=== PATIENT | male | born 1965 | race Caucasian/White ===

== ENCOUNTER 2017-09-23 04:49 | Observation (INO) ==
[2017-09-23] MEDS ORDERED: Aspirin 81 MG TAB.CHEW PO ONE (05:10)
[2017-09-23 05:20] LABS: Basophils # 0.1 K/mcL (0.0-0.2); Basophils % 0.3 %; Eosinophils # 0.1 K/mcL (0.0-0.6); Eosinophils % 0.6 %; Hematocrit 44.8 % (37.5-50.1); Immature Granulocytes % 0.8 % (0-4); Lymphocytes # 3.1 K/mcL (0.6-4.6); Lymphocytes % 17.6 %; Mean Corpuscular HGB Conc 35.7 g/dL (31.6-35.5); Mean Corpuscular Hemoglobin 33.6 pg (28.0-33.3); Mean Corpuscular Volume 94.1 fL (83.0-100.0); Mean Platelet Volume 10.1 fL (9.4-12.4); Monocytes # 0.9 K/mcL (0.0-1.3); Neutrophils # 13.5 K/mcL (1.6-8.9); Platelet Count 290 K/mcL (140-400); Red Blood Count 4.76 M/mcL (4.19-5.50); Segmented Neutrophils % 75.7 %
[2017-09-23 05:54] LABS: BUN/Creatinine Ratio 23 (6-26); Blood Urea Nitrogen 21 mg/dL (6-20); Calcium 10.9 mg/dL (8.6-10.3); Carbon Dioxide 24 mEq/L (23-29); Chloride 105 mEq/L (98-107); Glucose 132 mg/dL (70-105); Osmolality,Calculated 293 (280-300); Potassium 3.9 mEq/L (3.5-5.1); Sodium 139 mEq/L (136-145); eGFR For African Americans > 60 (> 60); eGFR For Non-African Americans > 60 (> 60)
[2017-09-23 05:56] LABS: Troponin I < 0.03 ng/mL (< 0.04)
--- NOTE | 2017-09-23 05:59 | Emergency Department Note ---
Disposition Clinical Impression: Epigastric pain Nausea & vomiting Qualifiers: Vomiting type: unspecified Vomiting Intractability: unspecified Qualified Code( s): R11.2 - Nausea with vomiting, unspecified Disposition: Admitted As Inpatient Condition: Good Referrals: Harika Arana HEALTH CONSULTANT [Primary Care Provider] - Forms: ED Satisfaction Letter Time of Disposition: 06:19 Chest Pain HPI - General Chief Complaint: ED Chest Pain Stated Complaint: CP, Hypertension Time Seen by Provider: 09/23/17 05:09 Source: patient Limitations: no limitations Vital Signs Reviewed: Yes Nursing Notes Reviewed: Yes - History of Present Illness HPI Narrative: 52-year-old male smoker, with past medical history of AR presents with symptoms he mentions are consistent with his past heart attack. Patient mentions nausea , vomiting, jaw pain, and epigastric pain. He mentions he first became nauseous yesterday afternoon, while he was at [employer] Later in the evening he started to have episodes of vomiting, and mentions he has vomited 3 or 4 times since 6 PM. He had awoken during the night, with epigastric pain, that was accompanied with jaw pain and neck pain. The time he did mention he had measured his blood pressure and it was 173/113. He mentions that his initial AR he had similar episodes of epigastric pain. He did take one nitroglycerin prior to his arrival, and mentions that his symptoms are easing up. He is not sure if his symptoms worsen on exertion. He does mention recent chills, but denies any fever, diarrhea, headache, chest pain, shortness of breath. Severity scale (1-10): 3 - Related Data Home Medications Medication Instructions Recorded Confirmed Atorvastatin [Lipitor] 80 mg PO HS 01/06/15 07/18/16 CloNIDine HCl 0.1 mg PO AD 01/06/15 07/18/16 Colchicine [Colcrys] 0.6 mg PO DAILY PRN 01/06/15 07/18/16 Cyclobenzaprine [Flexeril] 10 mg PO BID PRN 01/06/15 07/18/16 HydrOXYzine Pamoate 25 mg PO HS 01/06/15 07/18/16 Isosorbide MONOnitrate [Isosorbide 30 mg PO DAILY 01/06/15 07/18/16 Mononitrate ER] Lisinopril [Zestril] 30 mg PO DAILY 01/06/15 07/18/16 Metoprolol Tartrate 50 mg PO BID 01/06/15 07/18/16 Ranolazine [Ranexa] 500 mg PO BID 01/06/15 07/18/16 Aspirin [Adult Low Dose Aspirin EC] 81 mg PO DAILY 05/27/15 07/18/16 Nitroglycerin [Nitrostat] 0.4 mg SL PRN PRN 05/27/15 07/18/16 Gabapentin [Neurontin] 300 mg PO TID 07/16/15 07/18/16 traMADol [Ultram] 50 mg PO QID PRN 07/16/15 07/18/16 Allopurinol [Zyloprim 300 MG] 300 mg PO DAILY 07/18/16 07/18/16 Ranitidine HCl [Zantac 75] 75 mg PO BID 07/18/16 07/18/16 Previous Rx's Medication Instructions Recorded Folic Acid 1 mg PO DAILY #90 tablet 06/21/16 Allergies Allergy/AdvReac Type Severity Reaction Status Date / Time No Known Allergies Allergy Verified 01/06/15 15:20 All systems ED: reviewed and negative except as stated. Review of Systems: As Per HPI Constitutional: Reports: as per HPI Eyes: Denies: vision change ENT ED: Denies: throat pain Cardiovascular: Reports: as per HPI. Denies: palpitations, orthopnea, edema Respiratory: Reports: as per HPI. Denies: cough Gastrointestinal: Reports: as per HPI. Denies: diarrhea, constipation Genitourinary: Denies: dysuria Musculoskeletal: Denies: back pain Integumentary: Denies: rash Neurological: Denies: headache, weakness Endocrine: Denies: fatigue Hematological/Lymphatic: Denies: easy bleeding Allergic/Immunologic: Denies: facial swelling Chest Pain PMH - Past Medical History Medical history: Reports: GERD, hypertension, myocardial infarction, other Surgical history: Reports: appendectomy, hip replacement, other Psychiatric history: Reports: no psych history - Social History Smoking Status: Current every day smoker Alcohol use: Reports: occasionally Drug use: Reports: none Physical Exam - General Limitations: no limitations General appearance: alert, in no apparent distress - Head Head exam: atraumatic, normocephalic - Eye Eye exam: Present: EOMI. Absent: conjunctival injection - ENT ENT exam: mucous membranes moist, normal external ear exam - Neck Neck exam: Present: normal inspection, full ROM. Absent: lymphadenopathy - Chest Chest inspection: Present: normal inspection, symmetric chest wall rise - Respiratory Respiratory exam: Present: normal lung sounds bilaterally (Lungs sounds are coarse). Absent: respiratory distress, wheezes, stridor - Cardiovascular Cardiovascular exam: Present: regular rate, normal rhythm - Abdominal Exam Abdominal exam: Present: soft, Non-Tender - Extremities Exam Extremities exam: Present: normal inspection, full ROM, normal capillary refill - Back Exam Back exam: Present: normal inspection, full ROM - Neurological Exam Neurological exam: Present: alert, oriented X3 - Psychiatric Psychiatric exam: Present: normal affect, normal mood - Skin Skin exam: Present: warm, dry, intact, normal color. Absent: rash, cyanosis, diaphoresis Course Course Narrative: Patient is a 52-year-old male smoker. He has past medical History of AR, hypertension, hyperlipidemia. He presents with epigastric, jaw pain, accompanied with nausea and vomiting, and elevated blood pressure. He compares these symptoms to his previous AR which was approximately 7 years ago. He mentions he has not had any recent cardiac workup. Blood pressure at home per patient was 173/113. Patient had taken one nitroglycerin at home. He is declined additional analgesics. Repeat blood pressure at this time was 150/97. Patient has received aspirin here in the department. Workup has been initiated. Initial EKG showed no acute signs of ischemia, and appears consistent with previous EKG from 3 years ago. On examination patient is alert and oriented 3. No acute distress. - Reevaluation(s) Reevaluation #1: Chest x-ray still pending. No Elevation of troponin. Vitals remain stable. Blood pressure 123/93. Whilte Blood cell count 17.8. Neutrophils 13.5. This x -ray still pending. At this time it is the end of my shift. Care of patient will be transferred to dayshift provider Reinier Piedra CNP. Pt discussed with Reinier. Please see his documentation for details. At this time, I feel patient will be admitted for further eval and possible ACS rule out. However please see Reinier's documentation for final evaluation and disposition. Time: 06:18 Vital Signs Temperature 97.4 F L 09/23/17 04:51 Pulse Rate 67 09/23/17 04:51 Respiratory Rate 18 09/23/17 04:51 Blood Pressure 178/116 09/23/17 04:51 O2 Sat by Pulse Oximetry 96 09/23/17 04:51 Temperature 97.4 F L 09/23/17 04:51 Pulse Rate 68 09/23/17 06:05 Respiratory Rate 18 09/23/17 06:05 Blood Pressure 123/93 09/23/17 06:05 O2 Sat by Pulse Oximetry 98 09/23/17 06:05 Oxygen Delivery Oxygen Delivery Room Air Chest Pain - Lab Data Result diagrams: 09/23/17 05:07 09/23/17 05:07 Lab Results 09/23/17 09/23/17 Range/Units 05:07 05:07 WBC 17.8 H (4.3-11.1) K/mcL RBC 4.76 (4.19-5.50) M/mcL Hgb 16.0 (12.9-16.9) g/dL Hct 44.8 (37.5-50.1) % MCV 94.1 (83.0-100.0) fL MCH 33.6 H (28.0-33.3) pg MCHC 35.7 H (31.6-35.5) g/dL RDW 13.0 (11.5-14.5) % Plt Count 290 (140-400) K/mcL MPV 10.1 (9.4-12.4) fL Immature Gran % 0.8 (0-4) % Seg Neutrophils % 75.7 % Lymphocytes % 17.6 % Monocytes % 5.0 % Eosinophils % 0.6 % Basophils % 0.3 % Neutrophils # 13.5 H (1.6-8.9) K/mcL Lymphocytes # 3.1 (0.6-4.6) K/mcL Monocytes # 0.9 (0.0-1.3) K/mcL Eosinophils # 0.1 (0.0-0.6) K/mcL Basophils # 0.1 (0.0-0.2) K/mcL Sodium 139 (136-145) mEq/L Potassium 3.9 (3.5-5.1) mEq/L Chloride 105 (98-107) mEq/L Carbon Dioxide 24 (23-29) mEq/L BUN 21 H (6-20) mg/dL Creatinine 0.92 (0.70-1.30) mg/dL Est GFR ( Amer) > 60 (> 60) Est GFR (Non-Af Amer) > 60 (> 60) BUN/Creatinine Ratio 23 (6-26) Glucose 132 H (70-105) mg/dL Calculated Osmolality 293 (280-300) Calcium 10.9 H (8.6-10.3) mg/dL Troponin I < 0.03 (< 0.04) ng/mL - EKG Data EKG attestation: Yes I reviewed and interpreted this EKG. EKG results narrative: Sinus rhythm with occasional PVCs, ventricular rate 76, GA interval 160, QRS duration 90, QT over QTC 363/393; minimal voltage criteria for LVH, inferior myocardial infarction of indeterminate age, with comparison of Previous EKG from September 2014, no significant changes. S.B.A.R. - S.B.A.[place]. Situation: Demographics, MOA Background: Presenting Complaint, Relevant PMH, Meds, & Allergies Assessment: Vital Signs, Course and respsone to treatment, Pertinant Lab Results Recommendation: Barrier(s) to disposition, Recommendation based on pending studies, treatments, or consults S.B.A.R. Report Given to: Reinier Piedra CNP S.B.A.RArvind Repor Time: 06:20
--- NOTE | 2017-09-23 06:26 | Emergency Department Note ---
Disposition Clinical Impression: Epigastric pain, Atypical chest pain Nausea & vomiting Qualifiers: Vomiting type: unspecified Vomiting Intractability: unspecified Qualified Code( s): R11.2 - Nausea with vomiting, unspecified Disposition: Admitted As Inpatient Condition: Fair Referrals: Harika Arana CNP [Primary Care Provider] - Forms: ED Satisfaction Letter Time of Disposition: 07:27 Chest Pain HPI - General Chief Complaint: ED Chest Pain Stated Complaint: CP, Hypertension Time Seen by Provider: 09/23/17 05:09 Source: patient Limitations: no limitations - History of Present Illness Severity scale (1-10): 3 - Related Data Home Medications Medication Instructions Recorded Confirmed Atorvastatin [Lipitor] 80 mg PO HS 01/06/15 07/18/16 CloNIDine HCl 0.1 mg PO AD 01/06/15 07/18/16 Colchicine [Colcrys] 0.6 mg PO DAILY PRN 01/06/15 07/18/16 Cyclobenzaprine [Flexeril] 10 mg PO BID PRN 01/06/15 07/18/16 HydrOXYzine Pamoate 25 mg PO HS 01/06/15 07/18/16 Isosorbide MONOnitrate [Isosorbide 30 mg PO DAILY 01/06/15 07/18/16 Mononitrate ER] Lisinopril [Zestril] 30 mg PO DAILY 01/06/15 07/18/16 Metoprolol Tartrate 50 mg PO BID 01/06/15 07/18/16 Ranolazine [Ranexa] 500 mg PO BID 01/06/15 07/18/16 Aspirin [Adult Low Dose Aspirin EC] 81 mg PO DAILY 05/27/15 07/18/16 Nitroglycerin [Nitrostat] 0.4 mg SL PRN PRN 05/27/15 07/18/16 Gabapentin [Neurontin] 300 mg PO TID 07/16/15 07/18/16 traMADol [Ultram] 50 mg PO QID PRN 07/16/15 07/18/16 Allopurinol [Zyloprim 300 MG] 300 mg PO DAILY 07/18/16 07/18/16 Ranitidine HCl [Zantac 75] 75 mg PO BID 07/18/16 07/18/16 Previous Rx's Medication Instructions Recorded Folic Acid 1 mg PO DAILY #90 tablet 06/21/16 Allergies Allergy/AdvReac Type Severity Reaction Status Date / Time No Known Allergies Allergy Verified 01/06/15 15:20 Constitutional: Reports: as per HPI Eyes: Denies: vision change ENT ED: Denies: throat pain Cardiovascular: Reports: as per HPI. Denies: palpitations, orthopnea, edema Respiratory: Reports: as per HPI. Denies: cough Gastrointestinal: Reports: as per HPI. Denies: diarrhea, constipation Genitourinary: Denies: dysuria Musculoskeletal: Denies: back pain Integumentary: Denies: rash Neurological: Denies: headache, weakness Endocrine: Denies: fatigue Hematological/Lymphatic: Denies: easy bleeding Allergic/Immunologic: Denies: facial swelling Chest Pain PMH - Past Medical History Medical history: Reports: GERD, hypertension, myocardial infarction, other Surgical history: Reports: appendectomy, hip replacement, other Psychiatric history: Reports: no psych history - Social History Smoking Status: Current every day smoker Alcohol use: Reports: occasionally Drug use: Reports: none Physical Exam - General Limitations: no limitations General appearance: alert, in no apparent distress Course Course Narrative: 0600: I have assumed care of this patient from SARAHI Nieves due to mid-level shift change. Please see Ezequiel's documentation for care performed prior to my arrival. Briefly, this is an alert and oriented nontoxic-appearing 52-year-old male that presented for complaint of nausea, vomiting, left sided jaw pain,. Symptoms began yesterday.. He stated that he had vomited 3-4 times since 6 PM yesterday evening. He also complains of elevated blood pressure readings at home of 173/113. He does have a history of TX, hyperlipidemia, hypertension, and gastroesophageal reflux disease. He states that symptoms were similar to his previous TX. He administered 1 sublingual nitroglycerin prior to his arrival here and stated that his symptoms were improving at the time of his arrival. He stated that he had not had any recent cardiac workup. Aside from mildly elevated white blood cell count at 17.8, the patient's laboratory workup has been unremarkable. Chest x-ray shows no signs of a focal infiltrate. I believe this patient's leukocytosis is likely de-margination from his episodes of vomiting. Nonetheless, given the patient's medical history and the fact that symptoms are similar to his previous TX, we will admit to the hospitalist service for acute coronary syndrome rule out. I discussed this plan with Dr. Mcclendon, ED attending. She has had a [id number] evaluation with the patient and agrees with this plan. 0650: We were alerted by an overhead page for a rhythm alert on this patient. Upon entering the room, the patient was found to be in apparent sinus bradycardia at a rate of 35 bpm. He denied any new or worsening chest pain or pressure. An EKG was obtained at that time however did not catch this episode of bradycardia as the patient's heart rate quickly normalized. EKG showed a sinus rhythm at a rate of 60 bpm. ID interval 156, QRS duration 88, QT/QTc interval 394/395. 0725: I spoke with Dr. Delaney of the hospitalist service who has accepted the patient for admission for further evaluation. Vital Signs Temperature 97.4 F L 09/23/17 04:51 Pulse Rate 67 09/23/17 04:51 Respiratory Rate 18 09/23/17 04:51 Blood Pressure 178/116 09/23/17 04:51 O2 Sat by Pulse Oximetry 96 09/23/17 04:51 Temperature 97.4 F L 09/23/17 04:51 Pulse Rate 57 09/23/17 07:18 Respiratory Rate 16 09/23/17 07:18 Blood Pressure 143/88 09/23/17 07:18 O2 Sat by Pulse Oximetry 95 09/23/17 07:18 Oxygen Delivery Oxygen Delivery Room Air Chest Pain - Medical Records Medical records reviewed: Yes I reviewed the patient's medical records. - Lab Data Lab results reviewed: Yes I reviewed the patient's lab results. Lab results narrative: Laboratory Results WBC 17.8 K/mcL (4.3-11.1) H 09/23/17 05:07 RBC 4.76 M/mcL (4.19-5.50) 09/23/17 05:07 Hgb 16.0 g/dL (12.9-16.9) 09/23/17 05:07 Hct 44.8 % (37.5-50.1) 09/23/17 05:07 MCV 94.1 fL (83.0-100.0) 09/23/17 05:07 MCH 33.6 pg (28.0-33.3) H 09/23/17 05:07 MCHC 35.7 g/dL (31.6-35.5) H 09/23/17 05:07 RDW 13.0 % (11.5-14.5) 09/23/17 05:07 Plt Count 290 K/mcL (140-400) 09/23/17 05:07 MPV 10.1 fL (9.4-12.4) 09/23/17 05:07 Immature Gran % 0.8 % (0-4) 09/23/17 05:07 Seg Neutrophils % 75.7 % 09/23/17 05:07 Lymphocytes % 17.6 % 09/23/17 05:07 Monocytes % 5.0 % 09/23/17 05:07 Eosinophils % 0.6 % 09/23/17 05:07 Basophils % 0.3 % 09/23/17 05:07 Neutrophils # 13.5 K/mcL (1.6-8.9) H 09/23/17 05:07 Lymphocytes # 3.1 K/mcL (0.6-4.6) 09/23/17 05:07 Monocytes # 0.9 K/mcL (0.0-1.3) 09/23/17 05:07 Eosinophils # 0.1 K/mcL (0.0-0.6) 09/23/17 05:07 Basophils # 0.1 K/mcL (0.0-0.2) 09/23/17 05:07 Sodium 139 mEq/L (136-145) 09/23/17 05:07 Potassium 3.9 mEq/L (3.5-5.1) 09/23/17 05:07 Chloride 105 mEq/L (98-107) 09/23/17 05:07 Carbon Dioxide 24 mEq/L (23-29) 09/23/17 05:07 BUN 21 mg/dL (6-20) H 09/23/17 05:07 Creatinine 0.92 mg/dL (0.70-1.30) 09/23/17 05:07 Est GFR ( Amer) > 60 (> 60) 09/23/17 05:07 Est GFR (Non-Af Amer) > 60 (> 60) 09/23/17 05:07 BUN/Creatinine Ratio 23 (6-26) 09/23/17 05:07 Glucose 132 mg/dL (70-105) H 09/23/17 05:07 Calculated Osmolality 293 (280-300) 09/23/17 05:07 Calcium 10.9 mg/dL (8.6-10.3) H 09/23/17 05:07 Troponin I < 0.03 ng/mL (< 0.04) 09/23/17 05:07 Result diagrams: 09/23/17 05:07 09/23/17 05:07 Lab Results 09/23/17 09/23/17 Range/Units 05:07 05:07 WBC 17.8 H (4.3-11.1) K/mcL RBC 4.76 (4.19-5.50) M/mcL Hgb 16.0 (12.9-16.9) g/dL Hct 44.8 (37.5-50.1) % MCV 94.1 (83.0-100.0) fL MCH 33.6 H (28.0-33.3) pg MCHC 35.7 H (31.6-35.5) g/dL RDW 13.0 (11.5-14.5) % Plt Count 290 (140-400) K/mcL MPV 10.1 (9.4-12.4) fL Immature Gran % 0.8 (0-4) % Seg Neutrophils % 75.7 % Lymphocytes % 17.6 % Monocytes % 5.0 % Eosinophils % 0.6 % Basophils % 0.3 % Neutrophils # 13.5 H (1.6-8.9) K/mcL Lymphocytes # 3.1 (0.6-4.6) K/mcL Monocytes # 0.9 (0.0-1.3) K/mcL Eosinophils # 0.1 (0.0-0.6) K/mcL Basophils # 0.1 (0.0-0.2) K/mcL Sodium 139 (136-145) mEq/L Potassium 3.9 (3.5-5.1) mEq/L Chloride 105 (98-107) mEq/L Carbon Dioxide 24 (23-29) mEq/L BUN 21 H (6-20) mg/dL Creatinine 0.92 (0.70-1.30) mg/dL Est GFR ( Amer) > 60 (> 60) Est GFR (Non-Af Amer) > 60 (> 60) BUN/Creatinine Ratio 23 (6-26) Glucose 132 H (70-105) mg/dL Calculated Osmolality 293 (280-300) Calcium 10.9 H (8.6-10.3) mg/dL Troponin I < 0.03 (< 0.04) ng/mL - Radiology Data Radiology results reviewed: Yes I reviewed the patient's radiology results. Chest X-Ray 09/23/17 05:10 IMPRESSION: Diffuse bronchial wall thickening suggests airway inflammation, such as that seen with asthma, bronchitis smoking. No consolidative pneumonia. D/ / Yannick Perez / Yannick Perez Interpreting Provider: Yannick Perez - EKG Data EKG attestation: Yes I reviewed and interpreted this EKG. EKG results narrative: EKG reviewed by Dr. Mcclendon as well. EKG shows a sinus rhythm with occasional ventricular premature complexes at a rate of 76 bpm. ID interval 160, QRS duration 90, QT/QTc interval 363/393. No significant changes when compared to an EKG dated from 09/29/14. Heart Score - Score History: Moderately Suspicious EKG: Normal Age: 45-65 Risk Factors: Equal/Greater than 3 risk factor or history of atherosclerotic disease Troponin: Less than normal limit HEART Score Total: 4
--- NOTE | 2017-09-23 06:41 | Emergency Department Note ---
Disposition Clinical Impression: Epigastric pain Nausea & vomiting Qualifiers: Vomiting type: unspecified Vomiting Intractability: unspecified Qualified Code( s): R11.2 - Nausea with vomiting, unspecified Disposition: Admitted As Inpatient Condition: Good Referrals: Harika Arana CNP [Primary Care Provider] - Forms: ED Satisfaction Letter General Adult HPI - General Chief complaint: ED Chest Pain Stated complaint: CP, Hypertension Time Seen by Provider: 09/23/17 05:09 Source: patient Limitations: no limitations - History of Present Illness Pain Scale: 3 - Related Data Home Medications Medication Instructions Recorded Confirmed Atorvastatin [Lipitor] 80 mg PO HS 01/06/15 07/18/16 CloNIDine HCl 0.1 mg PO AD 01/06/15 07/18/16 Colchicine [Colcrys] 0.6 mg PO DAILY PRN 01/06/15 07/18/16 Cyclobenzaprine [Flexeril] 10 mg PO BID PRN 01/06/15 07/18/16 HydrOXYzine Pamoate 25 mg PO HS 01/06/15 07/18/16 Isosorbide MONOnitrate [Isosorbide 30 mg PO DAILY 01/06/15 07/18/16 Mononitrate ER] Lisinopril [Zestril] 30 mg PO DAILY 01/06/15 07/18/16 Metoprolol Tartrate 50 mg PO BID 01/06/15 07/18/16 Ranolazine [Ranexa] 500 mg PO BID 01/06/15 07/18/16 Aspirin [Adult Low Dose Aspirin EC] 81 mg PO DAILY 05/27/15 07/18/16 Nitroglycerin [Nitrostat] 0.4 mg SL PRN PRN 05/27/15 07/18/16 Gabapentin [Neurontin] 300 mg PO TID 07/16/15 07/18/16 traMADol [Ultram] 50 mg PO QID PRN 07/16/15 07/18/16 Allopurinol [Zyloprim 300 MG] 300 mg PO DAILY 07/18/16 07/18/16 Ranitidine HCl [Zantac 75] 75 mg PO BID 07/18/16 07/18/16 Previous Rx's Medication Instructions Recorded Folic Acid 1 mg PO DAILY #90 tablet 06/21/16 Allergies Allergy/AdvReac Type Severity Reaction Status Date / Time No Known Allergies Allergy Verified 01/06/15 15:20 Constitutional: Reports: as per HPI Eyes: Denies: vision change ENT ED: Denies: throat pain Cardiovascular: Reports: as per HPI. Denies: palpitations, orthopnea, edema Respiratory: Reports: as per HPI. Denies: cough Gastrointestinal: Reports: as per HPI. Denies: diarrhea, constipation Genitourinary: Denies: dysuria Musculoskeletal: Denies: back pain Integumentary: Denies: rash Neurological: Denies: headache, weakness Endocrine: Denies: fatigue Hematological/Lymphatic: Denies: easy bleeding Allergic/Immunologic: Denies: facial swelling Past Medical History - Past Medical History Medical history: Reports: GERD, hypertension, myocardial infarction, other Surgical history: Reports: appendectomy, hip replacement, other Psychiatric history: Reports: no psych history - Social History Smoking Status: Current every day smoker Smokeless Tobacco Status: Yes Alcohol use: Reports: occasionally Drug use: Reports: none Physical Exam - General Limitations: no limitations General appearance: alert, in no apparent distress Course - Reevaluation(s) Reevaluation #1: For this encounter, I have reviewed the SUPER[employer]GER [employer]CH[employer]IC or PA documentation, treatment plan, and medical decision making; and I have had face to face time with this patient. Patient to ED with chest pain radiated into the jaw. Significant cardiac history. Exam nonfocal. Lungs clear. Plan. Troponin negative. Pain resolved a home after his nitroglycerin. Admitted for further workup. Time: 06:39 Vital Signs Temperature 97.4 F L 09/23/17 04:51 Pulse Rate 67 09/23/17 04:51 Respiratory Rate 18 09/23/17 04:51 Blood Pressure 178/116 09/23/17 04:51 O2 Sat by Pulse Oximetry 96 09/23/17 04:51 Temperature 97.4 F L 09/23/17 04:51 Pulse Rate 63 09/23/17 06:19 Respiratory Rate 16 09/23/17 06:19 Blood Pressure 133/85 09/23/17 06:19 O2 Sat by Pulse Oximetry 97 09/23/17 06:19 Oxygen Delivery Oxygen Delivery Room Air Medical Decision Making - Lab Data Result diagrams: 09/23/17 05:07 09/23/17 05:07 Lab Results 09/23/17 09/23/17 Range/Units 05:07 05:07 WBC 17.8 H (4.3-11.1) K/mcL RBC 4.76 (4.19-5.50) M/mcL Hgb 16.0 (12.9-16.9) g/dL Hct 44.8 (37.5-50.1) % MCV 94.1 (83.0-100.0) fL MCH 33.6 H (28.0-33.3) pg MCHC 35.7 H (31.6-35.5) g/dL RDW 13.0 (11.5-14.5) % Plt Count 290 (140-400) K/mcL MPV 10.1 (9.4-12.4) fL Immature Gran % 0.8 (0-4) % Seg Neutrophils % 75.7 % Lymphocytes % 17.6 % Monocytes % 5.0 % Eosinophils % 0.6 % Basophils % 0.3 % Neutrophils # 13.5 H (1.6-8.9) K/mcL Lymphocytes # 3.1 (0.6-4.6) K/mcL Monocytes # 0.9 (0.0-1.3) K/mcL Eosinophils # 0.1 (0.0-0.6) K/mcL Basophils # 0.1 (0.0-0.2) K/mcL Sodium 139 (136-145) mEq/L Potassium 3.9 (3.5-5.1) mEq/L Chloride 105 (98-107) mEq/L Carbon Dioxide 24 (23-29) mEq/L BUN 21 H (6-20) mg/dL Creatinine 0.92 (0.70-1.30) mg/dL Est GFR ( Amer) > 60 (> 60) Est GFR (Non-Af Amer) > 60 (> 60) BUN/Creatinine Ratio 23 (6-26) Glucose 132 H (70-105) mg/dL Calculated Osmolality 293 (280-300) Calcium 10.9 H (8.6-10.3) mg/dL Troponin I < 0.03 (< 0.04) ng/mL
[2017-09-23] MEDS ORDERED: Nitroglycerin 0.4 MG TAB.SUBL SL PRN (07:17)
[2017-09-23 07:59] LABS: Bilirubin,Urine Negative (Negative); Blood,Urine Negative (Negative); Clarity,Urine Clear (Clear); Color,Urine Yellow (Yellow); Glucose,Urine (UA) Normal (Normal); Ketones,Urine Negative (Negative); Leukocyte Esterase,Urine Negative (Negative); Nitrite,Urine Negative (Negative); Protein,Urine 30 mg/dL (Neg-Trace); Urobilinogen,Urine Normal (Normal)
[2017-09-23 08:02] LABS: Bacteria,Urine None Seen per hpf (None-Few); Hyaline Casts,Urine None Seen per lpf (None-Few); Squamous Epithelial Cell,Urine None Seen per lpf (None-Few); WBC,Urine 0-3 per hpf (0-3)
[2017-09-23] MEDS ORDERED: Naloxone 0.4 MG/ML INJ IVP PRN (11:12)
[2017-09-23] MEDS ORDERED: Acetaminophen 325 MG TABLET PO PRN (11:12)
[2017-09-23] MEDS ORDERED: cloNIDine HCl 0.1 MG TABLET PO PRN (11:15)
[2017-09-23] MEDS ORDERED: Pantoprazole 40 MG VIAL IVP STA (11:22)
[2017-09-23] MEDS ORDERED: Ondansetron 4 MG/2 ML VIAL IVP PRN (11:27)
[2017-09-23] MEDS: *HR* HYDROcodone/Acet 5/325 mg TABLET PO PRN ×2 (11:56→20:47)
[2017-09-23] MEDS: Nicotine 14 MG PATCH.TD24 TD SCH (11:56)
[2017-09-23] MEDS ORDERED: GI Cocktail 40 ML EACH PO ONE (16:08)
[2017-09-23] MEDS ORDERED: tiZANidine 4 MG TABLET PO PRN (20:31)
[2017-09-23] MEDS ORDERED: traMADol 50 MG TABLET PO PRN (20:31)
--- NOTE | 2017-09-23 20:47 | Internal Med History&Physical ---
Date of Encounter: 09/23/17 Time of Encounter: 09:07 Internal Medicine - H&P: HPI Chief complaint: Chest Pain, Epigastric Pain Admitted From: Emergency Dept Plans for Post Hospital Care: Home History of present illness: Mr. Retana is a 52 year old white male with PMH of CAD who presented to ED with 2-day history of chest pain and epigastric pain. He states that symptoms are similar to his previous [place]. He states that while shopping at [employer] yesterday, he developed nausea and vomiting. That night, he was awoken by chest pain and epigastric pain that radiated to jaw and left neck. He checked his BP at home and it was elevated to systolic 170s. He took one nitroglycerin prior to arrival, which helped with the pain somewhat. He denies fever, chills, SOB, changes in bladder, or changes in bowels. In the ED, EKG was NSR with occasional PVCs. He experienced few brief episodes of bradycardia to 40s when sleeping. Initial troponin was WNL. I was asked to admit patient for ACS ruleout. During my interview, patient states that pain is better, but still present in chest and abdomen. He denies nauesa or vomiting. He took his ranitidine before arrival to the ED. He still feels some heartburn. He has no other complaints. Past Med Surg Social Fam HX - Past Medical History Attestation: Yes The following information was validated with the patient. Source: patient Medical history: arthritis, GERD, hyperlipidemia, hypertension, myocardial infarction, other Psychiatric history: no psych history - Past Surgical History Surgical History: appendectomy, hip replacement, other - Social History Smoking Status: Current every day smoker Packs per day: 1/2-1 pack Smokeless Tobacco Status: No Alcohol use: occasionally Drug use: none - Family History Father Living Status: Age at : 49 Cause of : [place] Hx Family Cardiac Disorders: Yes Sister Living Status: Age at : 58 Cause of : [place] Hx Family Cardiac Disorders: Yes Mother Living Status: Age at : 80 Cause of : Cancer Hx Family Cancer: Yes (Lung, ovarian) Brother Living Status: Hx Family Cancer: Yes (Bowel) Internal Medicine - H&P: Meds Atorvastatin [Lipitor] 80 mg PO HS 01/06/15 [History] CloNIDine HCl 0.1 mg PO DAILY PRN 01/06/15 [History] Colchicine [Colcrys] 0.6 mg PO DAILY PRN 01/06/15 [History] Cyclobenzaprine [Flexeril] 10 mg PO BID PRN 01/06/15 [History] HydrOXYzine Pamoate 25 mg PO HS 01/06/15 [History] Isosorbide MONOnitrate [Isosorbide Mononitrate ER] 30 mg PO DAILY 01/06/15 [ History] Lisinopril [Zestril] 30 mg PO DAILY 01/06/15 [History] Metoprolol Tartrate 50 mg PO BID 01/06/15 [History] Ranolazine [Ranexa] 500 mg PO BID 01/06/15 [History] Aspirin [Adult Low Dose Aspirin EC] 81 mg PO DAILY 05/27/15 [History] Nitroglycerin [Nitrostat] 0.4 mg SL Q5M PRN 05/27/15 [History] Gabapentin [Neurontin] 300 mg PO TID 07/16/15 [History] traMADol [Ultram] 50 - 100 mg PO QID PRN 07/16/15 [History] Folic Acid 1 mg PO DAILY #90 tablet 06/21/16 [Rx] Allopurinol [Zyloprim 300 MG] 300 mg PO DAILY 07/18/16 [History] Ranitidine HCl [Zantac 75] 150 mg PO BID 07/18/16 [History] Tizanidine HCl [Zanaflex] 4 mg PO Q8H PRN 09/23/17 [History] valACYclovir [Valtrex] 500 mg PO DAILY 09/23/17 [History] 3 Allergy/AdvReac Type Severity Reaction Status Date / Time No Known Allergies Allergy Verified 01/06/15 15:20 - Constitutional Constitutional: no anorexia, no chills, no fatigue, no fever(s), no lethargy, no malaise, no weakness, no weight gain, no weight loss - EENT Eyes: no blurry vision, no diplopia, no discharge, no pain, no other visual disturbances Ears: no decreased hearing, no ear pain Nose, mouth and throat: no dry mouth, no dysphagia, no facial pain, no mouth lesions, no mouth pain, no nasal congestion, no nasal discharge, no sinus pain, no sore throat - Cardiovascular Cardiovascular ROS IM: chest pain, no diaphoresis, no dyspnea, no dyspnea on exertion, no edema, no lightheadedness, no palpitations, no syncope - Respiratory Respiratory: no cough, no dyspnea, no hemoptysis, no dyspnea on exertion, no wheezing, no chest congestion - Gastrointestinal Gastrointestinal: abdominal pain, heartburn, nausea, vomiting, no change in bowel habits, no constipation, no diarrhea, no dysphagia, no hematemesis, no hematochezia, no melena - Genitourinary Genitourinary ROS male: no difficulty urinating, no dysuria, no hematuria, no urinary frequency - Musculoskeletal Musculoskeletal ROS IM: no arthralgias, no joint swelling, no muscle weakness, no myalgias - Integumentary Integumentary IM: no erythema, no rash, no skin ulcer, no jaundice - Neurological Neurological ROS: no abnormal gait, no abnormal speech, no behavioral changes, no dizziness, no focal weakness, no headache(s), no vertigo, no weakness - Psychiatric Psychiatric: no anxiety, no behavioral changes, no confusion, no depression - Endocrine Endocrine IM: no cold intolerance, no fatigue, no heat intolerance, no polydipsia, no polyphagia, no polyuria - Constitutional Vitals: Temp Pulse Resp BP Pulse Ox 98.4 F 72 16 156/92 95 09/23/17 18:43 09/23/17 18:43 09/23/17 18:43 09/23/17 18:43 09/23/17 18:43 General appearance: Present: cooperative, A&O X 3, pleasant, no acute distress, obese, answers questions appropriately - Head Head exam: Present: atraumatic, normocephalic - Eye Eye exam: Present: EOMI, PERRL. Absent: conjunctival injection, nystagmus, scleral icterus - ENT ENT exam: Present: mucous membranes moist, normal external ear exam, normal oropharynx - Neck Neck exam general surgery: Present: supple, trachea midline. Absent: lymphadenopathy, tenderness, thyromegaly - Respiratory Respiratory exam: Present: CTAB. Absent: accessory muscle use, rales, rhonchi, wheezes Additional comments: Normal WOB - Cardiovascular Cardiovascular exam: Present: RRR, +S1, +S2. Absent: diastolic murmur, gallop, rubs, systolic murmur Additional comments: No BLE edema - GI/Abdominal GI/Abdominal exam: Present: normal bowel sounds, soft. Absent: distended, hepatomegaly, mass, splenomegaly, tenderness - Neurological Exam Neurological exam: Present: alert, CN II-XII intact, oriented X3, no focal deficits, strengths equal and symetr throughout. Absent: facial droop, speech deficit - Psychiatric Psychiatric exam: Present: normal affect, normal mood. Absent: anxious, depressed - Skin Skin exam: Present: dry, intact, warm. Absent: cyanosis, rash Internal Med - H&P Results - Labs CBC & Chem 7: 09/24/17 05:19 09/24/17 05:19 Labs: Cardiac Enzymes 09/23/17 09/23/17 Range/Units 11:29 17:11 Troponin I < 0.03 < 0.03 (< 0.04) ng/mL Urine 09/23/17 Range/Units 07:50 Urine Color Yellow (Yellow) Urine Clarity Clear (Clear) Urine pH 7.0 (5.0-8.0) pH Units Ur Specific [place] 1.030 H (1.010-1.025) Urine Protein 30 H (Neg-Trace) mg/dL Urine Glucose (UA) Normal (Normal) mg/dL - VTE Reasons for not Prescribing Prophylaxis: Treatment not Indicated - Low risk for VTE Documentation of Mechanical Device: Intermittent pneumatic compression device - Assessment and plan (1) Atypical chest pain Current Visit: Yes Status: Acute Assessment and plan: Admit for observation for ACS ruleout. Start telemetry. Trend troponin x 3. Obtain ECHO. Repeat EKG in AM. Continue supplemental O2 PRN. Continue tylenol and norco PRN pain. Continue aspirin. Continue nitroglycerin PRN for pain. Treat HTN, HLD, and CAD with home medications as per below. Treat chronic GERD and acute epigastric pain as per below. Repeat labwork in AM. (2) Epigastric pain Current Visit: Yes Status: Acute Assessment and plan: Treat GERD as per below. Start GI cocktail PRN epigastric pain. (3) GERD (gastroesophageal reflux disease) Current Visit: Yes Status: Acute Assessment and plan: Continue home H2 rabia. Start PPI acutely. Qualifiers: Esophagitis presence: without esophagitis Qualified Code(s): K21.9 - Gastro -esophageal reflux disease without esophagitis (4) Nicotine dependence Current Visit: Yes Status: Acute Assessment and plan: Counselled on smoking cessation. Start nicotine transdermal 14 mg QD. Qualifiers: Nicotine product type: cigarettes Substance use status: in withdrawal Qualified Code(s): F17.213 - Nicotine dependence, cigarettes, with withdrawal (5) Nausea & vomiting Current Visit: Yes Status: Acute Assessment and plan: Start zofran 4 mg IV Q6H PRN nausea/vomiting. Qualifiers: Vomiting type: unspecified Vomiting Intractability: unspecified Qualified Code(s): R11.2 - Nausea with vomiting, unspecified (6) HTN (hypertension) Current Visit: Yes Status: Acute Assessment and plan: Continue home medications. Qualifiers: Hypertension type: essential hypertension Qualified Code(s): I10 - Essential (primary) hypertension (7) HLD (hyperlipidemia) Current Visit: Yes Status: Acute Assessment and plan: Continue home medications. Qualifiers: Hyperlipidemia type: mixed hyperlipidemia Qualified Code(s): E78.2 - Mixed hyperlipidemia (8) DVT prophylaxis Current Visit: Yes Status: Acute Assessment and plan: Low risk and ambulatory. Start SCDs. - Time Spent With Patient Total time spent is greater than 50% in coordination of care (as documented) at patient's floor/unit and/or counseling patient: 25 - 35 minutes
[2017-09-23] MEDS: Ranolazine 500 MG TAB.ER.12H PO SCH (21:34)
[2017-09-23] MEDS: hydrOXYzine pamoate 25 MG CAPSULE PO SCH (21:34)
[2017-09-23] MEDS: Gabapentin 300 MG CAPSULE PO SCH (21:35)
[2017-09-24 05:39] LABS: Basophils # 0.1 K/mcL (0.0-0.2); Basophils % 0.4 %; Eosinophils # 0.2 K/mcL (0.0-0.6); Eosinophils % 1.9 %; Hematocrit 44.3 % (37.5-50.1); Hemoglobin 15.6 g/dL (12.9-16.9); Immature Granulocytes % 0.4 % (0-4); Lymphocytes # 3.7 K/mcL (0.6-4.6); Lymphocytes % 31.3 %; Mean Corpuscular HGB Conc 35.2 g/dL (31.6-35.5); Mean Corpuscular Hemoglobin 33.6 pg (28.0-33.3); Mean Corpuscular Volume 95.5 fL (83.0-100.0); Monocytes # 1.1 K/mcL (0.0-1.3); Monocytes % 9.1 %; Neutrophils # 6.7 K/mcL (1.6-8.9); Platelet Count 258 K/mcL (140-400); Red Blood Count 4.64 M/mcL (4.19-5.50); Red Cell Distribution Width 13.2 % (11.5-14.5); Segmented Neutrophils % 56.9 %
[2017-09-24 05:56] LABS: BUN/Creatinine Ratio 18 (6-26); Blood Urea Nitrogen 17 mg/dL (6-20); Calcium 9.5 mg/dL (8.6-10.3); Carbon Dioxide 26 mEq/L (23-29); Chloride 104 mEq/L (98-107); Chol/HDL Ratio 3.8 (0-4.9); Cholesterol 148 mg/dL (< 200); Glucose 128 mg/dL (70-105); HDL Cholesterol 39 mg/dL (40-59); LDL Cholesterol,Calculated 75 mg/dL (0-99); Osmolality,Calculated 289 (280-300); Potassium 3.5 mEq/L (3.5-5.1); Sodium 138 mEq/L (136-145); Triglycerides 171 mg/dL (< 150); eGFR For African Americans > 60 (> 60); eGFR For Non-African Americans > 60 (> 60)
[2017-09-24] MEDS: *HR* HYDROcodone/Acet 5/325 mg TABLET PO PRN ×3 (06:18→21:46)
[2017-09-24] MEDS: Gabapentin 300 MG CAPSULE PO SCH ×3 (08:47→21:46)
[2017-09-24] MEDS: valACYclovir 500 MG TABLET PO SCH (08:47)
[2017-09-24] MEDS: Nicotine 14 MG PATCH.TD24 TD SCH (08:47)
[2017-09-24] MEDS: Isosorbide MONOnitrate (24 HR) 30 MG TAB.ER.24H PO SCH (08:47)
[2017-09-24] MEDS: Folic Acid 1 MG TABLET PO SCH (08:48)
[2017-09-24] MEDS: Lisinopril 20 MG TABLET PO SCH (08:48)
[2017-09-24] MEDS: Aspirin Enteric Coated 81 MG Tablet PO SCH (08:48)
[2017-09-24] MEDS: Ranolazine 500 MG TAB.ER.12H PO SCH ×2 (08:48→21:46)
[2017-09-24] MEDS: Famotidine 20 MG TABLET PO SCH ×2 (08:48→16:03)
--- NOTE | 2017-09-24 11:01 | Internal Med Progress Note ---
Date of Encounter: 09/24/17 Time of Encounter: 10:59 - Assessment and plan (1) Nausea & vomiting Current Visit: Yes Status: Resolved Assessment and plan: resolved. Qualifiers: Vomiting type: unspecified Vomiting Intractability: unspecified Qualified Code(s): R11.2 - Nausea with vomiting, unspecified (2) Epigastric pain Current Visit: Yes Status: Acute Assessment and plan: Patient has history of severe reflux and actually affects his voice in the morning upon arising. Discussed with the patient regarding possible EGD with gastroenterology either as an inpatient or outpatient per their recommendations. I spoke with Dr. Chatman and he can plan the EGD for after his stress test tomorrow if the stress is negative. He will be nothing by mouth after midnight Continue Pepcid. (3) Atypical chest pain Current Visit: Yes Status: Acute Assessment and plan: Admit for observation for ACS ruleout. Continue telemetry. Troponins negative 3 Echocardiogram pending Repeat EKG reviewed Patient currently on room air with no shortness of breath Continue Tylenol and Bendena when necessary for pain Continue aspirin Nitroglycerin when necessary for pain but has not been required Treat hypertension, hyperlipidemia and CAD with home medications Treat chronic GERD and acute epigastric discomfort (4) GERD (gastroesophageal reflux disease) Current Visit: Yes Status: Acute Assessment and plan: Continue home H2 rabia. Plan for EGD Qualifiers: Esophagitis presence: without esophagitis Qualified Code(s): K21.9 - Gastro -esophageal reflux disease without esophagitis (5) Nicotine dependence Current Visit: Yes Status: Acute Assessment and plan: Counselled on smoking cessation. Continue nicotine transdermal 14 mg QD. Qualifiers: Nicotine product type: cigarettes Substance use status: in withdrawal Qualified Code(s): F17.213 - Nicotine dependence, cigarettes, with withdrawal (6) DVT prophylaxis Current Visit: Yes Status: Acute Assessment and plan: Low risk, ambulatory. Start SCDs. (7) HTN (hypertension) Current Visit: Yes Status: Acute Assessment and plan: Continue home medications Vital signs stable. Qualifiers: Hypertension type: essential hypertension Qualified Code(s): I10 - Essential (primary) hypertension (8) HLD (hyperlipidemia) Current Visit: Yes Status: Acute Assessment and plan: Continue home medications. Lipid panel reviewed with triglycerides 171, cholesterol 148, LDL 75, HDL cholesterol 39 Qualifiers: Hyperlipidemia type: mixed hyperlipidemia Qualified Code(s): E78.2 - Mixed hyperlipidemia - Time Spent With Patient Total time spent is greater than 50% in coordination of care (as documented) at patient's floor/unit and/or counseling patient: - Subjective Interval history: Patient is chest pain-free. He has a lot of issues with reflux at night and hoarse voice in the morning upon awakening. He is a smoker and utilizing a NicoDerm patch. He denies fever or chills shortness of breath or sweats. Discussed talking with gastroenterology service about possible EGD for evaluation of his severe reflux and he is in agreement. - Constitutional Vitals: Temp Pulse Resp BP Pulse Ox 97.9 F 60 18 124/76 94 09/24/17 07:09 09/24/17 07:09 09/24/17 07:09 09/24/17 07:09 09/24/17 07:09 General appearance: Present: cooperative, A&O X 3, pleasant, answers questions appropriately - Head Head exam: Present: atraumatic, normocephalic - Eye Eye exam: Present: PERRL, conjuntiva pink, sclera anicteric Pupils: Present: PERRL - Neck Neck exam general surgery: Present: supple, trachea midline. Absent: lymphadenopathy - Respiratory Respiratory exam: Absent: accessory muscle use, rales, rhonchi, wheezes Additional comments: slight coarse breath sounds - Cardiovascular Cardiovascular exam: Present: RRR, +S1, +S2. Absent: diastolic murmur, gallop, rubs, systolic murmur - GI/Abdominal GI/Abdominal exam: Present: normal bowel sounds, soft, no peritoneal signs. Absent: distended, tenderness - Extremities Exam Extremities exam: Present: warm, radial pulses palpable and symmetrical. Absent : calf tenderness, cyanotic, pedal edema - Neurological Exam Neurological exam: Present: alert, CN II-XII intact, oriented X3, no focal deficits. Absent: pronater drift, facial droop, speech deficit - Skin Skin exam: Present: dry, intact, normal color, warm Internal Medicine: Result - Labs CBC & Chem 7: 09/24/17 05:19 09/24/17 05:19 Labs: Short CBC 09/24/17 Range/Units 05:19 WBC 11.8 H (4.3-11.1) K/mcL Hgb 15.6 (12.9-16.9) g/dL Hct 44.3 (37.5-50.1) % Plt Count 258 (140-400) K/mcL Neutrophils # 6.7 (1.6-8.9) K/mcL BMP 09/24/17 05:19 Sodium 138 Potassium 3.5 Chloride 104 Carbon Dioxide 26 BUN 17 Creatinine 0.96 Glucose 128 H Calcium 9.5 Cardiac Enzymes 09/23/17 09/23/17 Range/Units 11:29 17:11 Troponin I < 0.03 < 0.03 (< 0.04) ng/mL - VTE Reasons for not Prescribing Prophylaxis: Treatment not Indicated - Low risk for VTE Documentation of Mechanical Device: Intermittent pneumatic compression device Consult Discharge Plan - Plan Referrals: Harika Arana, [employer] [Primary Care Provider] -
[2017-09-24] MEDS: hydrOXYzine pamoate 25 MG CAPSULE PO SCH (21:45)
[2017-09-25 05:15] LABS: Hematocrit 44.6 % (37.5-50.1); Hemoglobin 15.4 g/dL (12.9-16.9); Mean Corpuscular HGB Conc 34.5 g/dL (31.6-35.5); Mean Corpuscular Hemoglobin 33.6 pg (28.0-33.3); Mean Corpuscular Volume 97.2 fL (83.0-100.0); Mean Platelet Volume 10.4 fL (9.4-12.4); Platelet Count 249 K/mcL (140-400); Red Blood Count 4.59 M/mcL (4.19-5.50); Red Cell Distribution Width 13.2 % (11.5-14.5)
[2017-09-25 05:35] LABS: BUN/Creatinine Ratio 21 (6-26); Blood Urea Nitrogen 19 mg/dL (6-20); Calcium 9.1 mg/dL (8.6-10.3); Carbon Dioxide 25 mEq/L (23-29); Chloride 107 mEq/L (98-107); Glucose 92 mg/dL (70-105); Osmolality,Calculated 292 (280-300); Potassium 3.7 mEq/L (3.5-5.1); Sodium 140 mEq/L (136-145); eGFR For African Americans > 60 (> 60); eGFR For Non-African Americans > 60 (> 60)
[2017-09-25] MEDS ORDERED: Regadenoson 0.4 MG/5 ML SYRINGE IVP ONE (05:35)
[2017-09-25] MEDS: *HR* HYDROcodone/Acet 5/325 mg TABLET PO PRN (06:24)
[2017-09-25] MEDS: Folic Acid 1 MG TABLET PO SCH (09:29)
[2017-09-25] MEDS: valACYclovir 500 MG TABLET PO SCH (09:29)
[2017-09-25] MEDS: Lisinopril 20 MG TABLET PO SCH (09:29)
[2017-09-25] MEDS: Isosorbide MONOnitrate (24 HR) 30 MG TAB.ER.24H PO SCH (09:29)
[2017-09-25] MEDS: Ranolazine 500 MG TAB.ER.12H PO SCH (09:29)
[2017-09-25] MEDS: Famotidine 20 MG TABLET PO SCH (09:29)
[2017-09-25] MEDS: Nicotine 14 MG PATCH.TD24 TD SCH (09:30)
[2017-09-25] MEDS: Aspirin Enteric Coated 81 MG Tablet PO SCH (09:30)
[2017-09-25] MEDS: Gabapentin 300 MG CAPSULE PO SCH (09:30)
[2017-09-25] MEDS ORDERED: Lidocaine -MPF 2% 2 ML VIAL ONE (11:43)
[2017-09-25] MEDS ORDERED: *HR* Propofol 200 MG/20 ML VIAL IVP ONE (11:44)
--- NOTE | 2017-09-25 12:22 | Anesthesia Evaluation PreOp ---
Date of Encounter: 09/25/17 Time of Encounter: 12:19 - Past History Planned Operation: EGD Cardiac History: [place] (2010), HTN, Hyperlipidemia, Cardiac Stent (stent x 2 in 2010) Pulmonary History: Smoker (30 years) [employer] History: Denies Any Significant HX Other Medical History: Denies Any Significant HX, GERD Anesthesia History: No Prior Anesthetic Complications, Past Anesthesia Alcohol Use: occasionally Drug use: none Medications and Allergies Atorvastatin [Lipitor] 80 mg PO HS 01/06/15 [History] CloNIDine HCl 0.1 mg PO DAILY PRN 01/06/15 [History] Colchicine [Colcrys] 0.6 mg PO DAILY PRN 01/06/15 [History] Cyclobenzaprine [Flexeril] 10 mg PO BID PRN 01/06/15 [History] HydrOXYzine Pamoate 25 mg PO HS 01/06/15 [History] Isosorbide MONOnitrate [Isosorbide Mononitrate ER] 30 mg PO DAILY 01/06/15 [ History] Lisinopril [Zestril] 30 mg PO DAILY 01/06/15 [History] Metoprolol Tartrate 50 mg PO BID 01/06/15 [History] Ranolazine [Ranexa] 500 mg PO BID 01/06/15 [History] Aspirin [Adult Low Dose Aspirin EC] 81 mg PO DAILY 05/27/15 [History] Nitroglycerin [Nitrostat] 0.4 mg SL Q5M PRN 05/27/15 [History] Gabapentin [Neurontin] 300 mg PO TID 07/16/15 [History] traMADol [Ultram] 50 - 100 mg PO QID PRN 07/16/15 [History] Folic Acid 1 mg PO DAILY #90 tablet 06/21/16 [Rx] Allopurinol [Zyloprim 300 MG] 300 mg PO DAILY 07/18/16 [History] Ranitidine HCl [Zantac 75] 150 mg PO BID 07/18/16 [History] Tizanidine HCl [Zanaflex] 4 mg PO Q8H PRN 09/23/17 [History] valACYclovir [Valtrex] 500 mg PO DAILY 09/23/17 [History] 3 Allergy/AdvReac Type Severity Reaction Status Date / Time No Known Allergies Allergy Verified 01/06/15 15:20 - Meds/Allergy Pre-op Review Medications Reviewed: Yes Allergies Reviewed: Yes Beta Blockers on Current Med List: Yes If Beta Blockers taken, Date/Time (Last Dose taken): 09/25/2017 Anesthesia Results - Labs 09/25/17 04:00 09/25/17 04:00 - Imaging EKG: report reviewed (09/24/2017 SR with occasional ventricular premature complexes, inferior infarct) Additional studies: 09/25/2017 Stress Impression: Perfusion imaging was negative for ischemia. Fixed inferior wall defect - cannot exclude prior infarct. Low level exercise/ pharmacologic stress ECG is negative for ischemia at level of heart rate achieved. Occasional PVCs noted during stress. Gated EF = 61%. 09/24/2017 Limited Echo Impressions: LVEF 60%. Normal LV chamber size, wall thickness and function. Anesthesia Exam Vital Signs/O2 Sat, Most Current Temp Pulse Resp BP Pulse Ox 97.7 F 56 16 138/73 96 09/25/17 11:13 09/25/17 11:13 09/25/17 11:13 09/25/17 11:13 09/25/17 11:13 Height: 5'11''/1.8 m Weight: 267 lbs/121.2 kg NPO (# of Hours): 8 Pain Scale: 0 Pain Scale Used: Numeric (1 - 10) - HEENT Pupil (Motor): EOMI Mallampati: III Teeth: Normal (multiple chipped teeth) Oral Opening: Greater than 3 - [employer] LOC: Oriented [employer] Motor: Normal RUE, Normal LUE, Normal RLE, Normal LLE, Normal Face [employer] Sensory: Normal: RUE, LUE, RLE, LLE, Face - Cardiac Rhythm: Regular Murmur: None - Pulmonary Breath Sounds: bilateral Clear Respiratory Effort: Symmetrical Anesthesia Assess/Plan ASA Score: 3 Modified [place] Scale for Level of Consciousness: Cooperative, oriented, and tranquil Anesthetic Plan: MAC Monitoring Plan: Standard Monitors
[2017-09-25] MEDS ORDERED: Tetracaine/Benzocaine/Butamben 200MG/SPRAY (100SPY/BOT) MM ONE (12:30)
--- NOTE | 2017-09-25 13:01 | Gastroenterology Consult Note ---
<Jacqui Nesbitt M - Last Filed: 09/25/17 13:07> Date of Encounter: 09/25/17 Time of Encounter: 11:10 - Assessment and plan (1) Epigastric pain Current Visit: Yes Status: Acute Assessment and plan: Troponins negative, likely due to GErD. Will proceed with EGD today, continue PPI. Continue antireflux regimen. Pt states he drinks several sodas a day advised he needs to cut back and stop. (2) GERD (gastroesophageal reflux disease) Current Visit: Yes Status: Acute Qualifiers: Esophagitis presence: without esophagitis Qualified Code(s): K21.9 - Gastro -esophageal reflux disease without esophagitis - Time Spent With Patient Total time spent is greater than 50% in coordination of care (as documented) at patient's floor/unit and/or counseling patient: GI History of Present Illness - Data of Consult Patient: new to practice Consult date: 09/25/17 Requesting Physician: Mitzi Zacarias CNP - Consult Narrative Reason for consult: chest pain History of present illness: Mr. Retana is a 52 year old white male with PMH of CAD who presented to ED with 2-day history of chest pain and epigastric pain. He states that symptoms are similar to his previous [place]. He also developed nausea and vomiting. That night , he was awoken by chest pain and epigastric pain that radiated to jaw and left neck. He checked his BP at home and it was elevated to systolic 170s. He still feels some heartburn. Troponins were negative. He does report episodes of acid coming up into his throat at night. he denies any pain this morning. He denies any diarrhea or constipation, bloody or tarry stools. He has been taking ranitidine at home with no relief of symptoms. colon 2/16 diverticulosis, 2 mm polyp in sig (hyperplastic) NSAIDS ASA 81 mg, anticoagulants: none Past Med Surg Social Fam HX - Past Medical History Medical history: arthritis, GERD, hyperlipidemia, hypertension, myocardial infarction, other Psychiatric history: no psych history - Past Surgical History Surgical History: appendectomy, hip replacement, other - Social History Smoking Status: Current every day smoker Packs per day: 1/2-1 pack Smokeless Tobacco Status: No Alcohol use: occasionally Drug use: none - Family History Father Living Status: Age at : 49 Cause of : [place] Hx Family Cardiac Disorders: Yes Sister Living Status: Age at : 58 Cause of : [place] Hx Family Cardiac Disorders: Yes Mother Living Status: Age at : 80 Cause of : Cancer Hx Family Cancer: Yes (Lung, ovarian) Brother Living Status: Hx Family Cancer: Yes (Bowel) Review of Systems: GI: as per [facility] GENERAL: denies fever, has some chills EYES: denies yellow discoloration ENT: denies pain with swallowing or difficulty swallowing CARDIO: see HPI RESP: No Shortness of breath with exertion : denies change in color of urine NEURO: denies any weakness HEME: Denies any bruising MS: denies joint pain, joint swelling or back pain. DERM: denies rash or itching PSYCH: Denies history of anxiety or depression - Constitutional Vitals: Temp Pulse Resp BP Pulse Ox 97.8 F 66 16 117/73 96 09/25/17 12:20 09/25/17 12:20 09/25/17 12:20 09/25/17 12:20 09/25/17 12:20 Exam: CONSTITUTIONAL:~alert, no acute distress.~HEAD:~normocephalic.~EYES:~no jaundice.~NECK:~no obvious swelling.~HEART:~regular rate and rhythm, no murmurs. ~LUNGS:~bilateral good air entry.~ABDOMEN:~non distended, soft, non tender, no masses palpable, no organomegaly.~RECTAL EXAM:~Deferred.~EXTREMITIES:~no clubbing, cyanosis or edema.~SKIN:~no stigmata of chronic liver disease.~ NEUROLOGIC:~no obvious focal defect.~~~~ Results - Labs CBC & Chem 7: 09/25/17 04:00 09/25/17 04:00 Labs: Last Result Calcium 9.1 mg/dL (8.6-10.3) 09/25/17 04:00 Troponin I < 0.03 ng/mL (< 0.04) 09/23/17 17:11 Triglycerides 171 mg/dL (< 150) H 09/24/17 05:19 Entire Visit Hgb 15.4 g/dL (12.9-16.9) 09/25/17 04:00 Hct 44.6 % (37.5-50.1) 09/25/17 04:00 - Impressions Impressions Echocardiogram Limited Views 09/24/17 11:00 Impressions: LVEF 60%. Normal LV chamber size, wall thickness and function. Left Ventricular Wall Motion: Rest Echo Findings All wall segments showed normal motion. Findings: Study Quality * Technically adequate exam. ECG Findings * Normal sinus rhythm. Left Ventricle * LVEF 60%. * Normal LV chamber size, wall thickness and function. Right Ventricle * Normal right ventricular structure and function. Consult Discharge Plan - Plan Instructions: Gastritis (DC), Low Fat Diet (DC), Ulcerative Colitis (DC) Referrals: Harika Arana CNP [Primary Care Provider] - <Maximo Butler - Last Filed: 09/25/17 14:49> Date of Encounter: 09/25/17 Time of Encounter: 12:45 - Time Spent With Patient Total time spent is greater than 50% in coordination of care (as documented) at patient's floor/unit and/or counseling patient: GI History of Present Illness - Data of Consult Requesting Physician: Mitzi Zacarias CNP - Consult Narrative History of present illness: Mr. Retana is a 52 year old male - Constitutional Vitals: Temp Pulse Resp BP Pulse Ox 98.6 F 72 16 99/61 96 09/25/17 13:09 09/25/17 13:09 09/25/17 13:09 09/25/17 13:09 09/25/17 13:09 Results - Labs CBC & Chem 7: 09/25/17 04:00 09/25/17 04:00 Labs: Last Result Calcium 9.1 mg/dL (8.6-10.3) 09/25/17 04:00 Troponin I < 0.03 ng/mL (< 0.04) 09/23/17 17:11 Triglycerides 171 mg/dL (< 150) H 09/24/17 05:19 Entire Visit Hgb 15.4 g/dL (12.9-16.9) 09/25/17 04:00 Hct 44.6 % (37.5-50.1) 09/25/17 04:00 - Impressions Impressions Echocardiogram Limited Views 09/24/17 11:00 Impressions: LVEF 60%. Normal LV chamber size, wall thickness and function. Left Ventricular Wall Motion: Rest Echo Findings All wall segments showed normal motion. Findings: Study Quality * Technically adequate exam. ECG Findings * Normal sinus rhythm. Left Ventricle * LVEF 60%. * Normal LV chamber size, wall thickness and function. Right Ventricle * Normal right ventricular structure and function. - Attending Attestation I have personally performed a face to face evaluation on this patient. I have reviewed and agree with the care plan. History and Exam by me shows: Being seen at the bedside. 52-year-old male with epigastric area pain. Cardiac workup has been negative. Recommendation: EGD to rule out gastric/esophageal causes for his abdominal pain
[2017-09-25 13:15] VITALS: BP 99/61
--- NOTE | 2017-09-25 14:36 | Discharge Summary ---
- NOTES TO OUTPATIENT PROVIDER Notes to Outpatient Provider: Patient had normal stress test with no reversible infarct and no ischemia. Patient had EGD with gastric nonbleeding ulcers with biopsy pending. Follow-up with PCP in one week. Follow-up with GI service as directed for biopsy reports. Charged on Carafate ACHS and PPI twice a day Orders not resulted at time of discharge: Pending orders 09/24/17 06:00 ECG 12 lead ECG [ECG] AM 0600 09/24/17 10:44 NM jane perf SPECT multi [NM] Routine 09/25/17 12:58 H. pylori Urease Culture [RM] Routine Surgical Pathology [PTH] Routine Date of Encounter: 09/25/17 Time of Encounter: 14:33 - Discharge Diagnosis (1) Nausea & vomiting Priority: Primary Status: Resolved Assessment and Plan: resolved before admission. Qualifiers: Vomiting type: unspecified Vomiting Intractability: unspecified Qualified Code(s): R11.2 - Nausea with vomiting, unspecified (2) Epigastric pain Priority: Primary Status: Acute Assessment and Plan: Patient has history of severe reflux which actually affects his voice in the morning upon arising. Discussed with the patient regarding possible EGD with gastroenterology either as an inpatient or outpatient per their recommendations. I spoke with Dr. Chatman and he can plan the EGD for after his stress test tomorrow if the stress is negative. EGD was completed and revealed many nonbleeding catered and lingular gastric ulcers in the gastric body and gastric atrium. Biopsies were obtained and the patient will follow-up with the GI service for those findings. Continue Pepcid twice a day and add Carafate before meals and at bedtime for 7 days. Discussed behavior modifications for treatment of GERD such as raising the head of the bed with blocks under the legs and dietary modalities Also tobacco cessation. (3) Atypical chest pain Priority: Primary Status: Acute Assessment and Plan: Admit for observation for ACS rule out. Troponins negative 3 EKG sinus rhythm with occasional PVCs. Echocardiogram reviewed LVEF 60% with normal LV chamber size wall thickness and function and all wall segments showed normal motion under rest Echo findings. Patient currently on room air with no shortness of breath Continue Tylenol and [place] when necessary for pain Continue baby aspirin Treat hypertension, hyperlipidemia and CAD with home medications Treat chronic GERD and acute epigastric discomfort Stress test completed with impression of perfusion imaging was negative for ischemia, fixed inferior wall defect which cannot exclude prior infarct Low level exercise pharmacological stress ECG is negative for ischemia at level of heart rate is achieved. Gated EF equals 61%. (4) GERD (gastroesophageal reflux disease) Priority: Primary Status: Acute Assessment and Plan: EGD completed PPI twice a day Follow-up with gastroenterology regarding biopsy findings Qualifiers: Esophagitis presence: without esophagitis Qualified Code(s): K21.9 - Gastro -esophageal reflux disease without esophagitis (5) Nicotine dependence Priority: Primary Status: Acute Assessment and Plan: Counselled on smoking cessation. Spine that tobacco can also irritate gastric ulcers. Qualifiers: Nicotine product type: cigarettes Substance use status: in withdrawal Qualified Code(s): F17.213 - Nicotine dependence, cigarettes, with withdrawal (6) HTN (hypertension) Priority: Primary Status: Chronic Assessment and Plan: Continue home medications, blood pressure and Vital signs stable. Qualifiers: Hypertension type: essential hypertension Qualified Code(s): I10 - Essential (primary) hypertension (7) HLD (hyperlipidemia) Priority: Primary Status: Chronic Assessment and Plan: Continue home statin Lipid panel reviewed with triglycerides 171, cholesterol 148, LDL 75, HDL cholesterol 39 Qualifiers: Hyperlipidemia type: mixed hyperlipidemia Qualified Code(s): E78.2 - Mixed hyperlipidemia Hospital course: Mr. Retana is a 52 year old male with a past medical history of CAD and OR who presented to the emergency room with a 2 day history of chest pain and epigastric pain. He also had an episode of nausea and vomiting the day before admission. He was awoken from sleep by chest pain and epigastric pain that radiated to his jaw and neck. Blood pressure was elevated on a check at home. Troponins were negative 3. Stress test was completed with no ischemia or reversible infarct. EGD was completed with some ulcerations of the stomach. He will be sent home on a PPI twice a day and Carafate please refer to the assessment and plan for further details of this admission. Tobacco cessation was advised Discharge discussed with: patient, nurse Time spent discussing smoking cessation with patient: 3 to 10 minutes - Time Spent with Patient Total time spent providing and/or coordinating discharge services: Less than 30 minutes - Discharge Medications Prescriptions: Pantoprazole Sodium [Protonix] 40 mg PO BID #60 granpkt. Sucralfate [Carafate] 1 gm PO QIDAC 10 Days #40 tablet Home Medications: Atorvastatin [Lipitor] 80 mg PO HS 01/06/15 [History] CloNIDine HCl 0.1 mg PO DAILY PRN 01/06/15 [History] Colchicine [Colcrys] 0.6 mg PO DAILY PRN 01/06/15 [History] Cyclobenzaprine [Flexeril] 10 mg PO BID PRN 01/06/15 [History] HydrOXYzine Pamoate 25 mg PO HS 01/06/15 [History] Isosorbide MONOnitrate [Isosorbide Mononitrate ER] 30 mg PO DAILY 01/06/15 [ History] Lisinopril [Zestril] 30 mg PO DAILY 01/06/15 [History] Metoprolol Tartrate 50 mg PO BID 01/06/15 [History] Ranolazine [Ranexa] 500 mg PO BID 01/06/15 [History] Aspirin [Adult Low Dose Aspirin EC] 81 mg PO DAILY 05/27/15 [History] Nitroglycerin [Nitrostat] 0.4 mg SL Q5M PRN 05/27/15 [History] Gabapentin [Neurontin] 300 mg PO TID 07/16/15 [History] traMADol [Ultram] 50 - 100 mg PO QID PRN 07/16/15 [History] Folic Acid 1 mg PO DAILY #90 tablet 06/21/16 [Rx] Allopurinol [Zyloprim 300 MG] 300 mg PO DAILY 07/18/16 [History] Ranitidine HCl [Zantac 75] 150 mg PO BID 07/18/16 [History] Tizanidine HCl [Zanaflex] 4 mg PO Q8H PRN 09/23/17 [History] valACYclovir [Valtrex] 500 mg PO DAILY 09/23/17 [History] Pantoprazole Sodium [Protonix] 40 mg PO BID #60 09/25/17 [Rx] Sucralfate [Carafate] 1 gm PO QIDAC 10 Days #40 tablet 09/25/17 [Rx] Allergies/Adverse Reactions: 3 Allergy/AdvReac Type Severity Reaction Status Date / Time No Known Allergies Allergy Verified 01/06/15 15:20 Date of admission: 09/23/17 07:33 Primary care physician: Harika Arana CNP Consults: 09/24/17 10:45 Consult to Gastroenterology [CONS] Routine Consulting Provider: Gastroenterology Amaris Reason for Consult: gerd, possible EGD after stress in am per Dr Chatman Time Notified: 10:46 Call Completed: Yes Discharging clinician: Susan Castaneda Anticipated date of discharge: 09/25/17 - Constitutional Vitals: Temp Pulse Resp BP Pulse Ox 98.6 F 72 16 99/61 96 09/25/17 13:09 09/25/17 13:09 09/25/17 13:09 09/25/17 13:09 09/25/17 13:09 General appearance: Present: cooperative, A&O X 3, pleasant, no acute distress, answers questions appropriately - Head Head exam: Present: atraumatic, normocephalic - Eye Eye exam: Present: PERRL, conjuntiva pink, sclera anicteric Pupils: Present: PERRL - Neck Neck exam general surgery: Present: supple, trachea midline. Absent: lymphadenopathy - Respiratory Respiratory exam: Present: CTAB. Absent: accessory muscle use, rales, rhonchi, wheezes - Cardiovascular Cardiovascular exam: Present: RRR, +S1, +S2. Absent: diastolic murmur, gallop, rubs, systolic murmur - GI/Abdominal GI/Abdominal exam: Present: normal bowel sounds, soft, no peritoneal signs. Absent: distended, guarding, tenderness - Extremities Exam Extremities exam: Present: warm, radial pulses palpable and symmetrical. Absent : calf tenderness, cyanotic, pedal edema - Neurological Exam Neurological exam: Present: alert, CN II-XII intact, oriented X3, no focal deficits. Absent: pronater drift, facial droop, speech deficit - Skin Skin exam: Present: dry, intact, normal color, warm - Patient Status Disposition: Home, Self-Care Condition: Fair Functional capacity at discharge: independent ambulation Overall status at discharge: patient is progressing back to baseline - Discharge Instructions Instructions: Gastritis (DC), Low Fat Diet (DC), Ulcerative Colitis (DC) Follow Up With: Harika Arana CNP [Primary Care Provider] - - Diet and Activity Activity: increase activity as tolerated Diet: low fat, low cholesterol, low salt diet - VTE Reasons for not Prescribing Prophylaxis: Treatment not Indicated - Low risk for VTE Documentation of Mechanical Device: Intermittent pneumatic compression device
--- NOTE | 2017-09-26 05:35 | Electrocardiograph Report ---
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
--- NOTE | 2017-09-26 05:38 | Electrocardiograph Report ---
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
--- NOTE | 2017-09-26 05:57 | Electrocardiograph Report ---
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
== END 2017-09-25 16:30 | disposition home or self-care (01) ==
LOC: 3BNU 04:49 → EMEROO 04:49 → 3BNU 08:15
PROVIDERS: ADMIT Family Medicine; ATTEND Registered Nurse
PROC: ENDOEBX (2017-09-25 13:00)

== ENCOUNTER 2020-02-11 18:22 | Observation (INO) ==
[2020-02-11] MEDS ORDERED: Aspirin 81 MG TAB.CHEW PO ONE (18:52)
[2020-02-11 19:09] LABS: Basophils # 0.1 K/mcL (0.0-0.2); Basophils % 0.4 %; Eosinophils # 0.2 K/mcL (0.0-0.6); Eosinophils % 1.7 %; Hematocrit 35.2 % (37.5-50.1); Hemoglobin 12.2 g/dL (12.9-16.9); Immature Granulocytes % 1.3 % (0-4); Lymphocytes # 5.3 K/mcL (0.6-4.6); Lymphocytes % 46.4 %; Mean Corpuscular HGB Conc 34.7 g/dL (31.6-35.5); Mean Corpuscular Volume 98.1 fL (83.0-100.0); Mean Platelet Volume 9.9 fL (9.4-12.4); Monocytes % 8.5 %; Neutrophils # 4.8 K/mcL (1.6-8.9); Platelet Count 255 K/mcL (140-400); Red Blood Count 3.59 M/mcL (4.19-5.50); Red Cell Distribution Width 13.9 % (11.5-14.5); Segmented Neutrophils % 41.7 %; White Blood Count 11.4 K/mcL (4.3-11.1)
[2020-02-11 19:10] LABS: Prothrombin Time 11.3 Seconds (9.4-12.1)
[2020-02-11 19:13] LABS: Activated Partial Thrombo Time 34.7 Seconds (26.0-36.0)
[2020-02-11 19:26] LABS: Alanine Aminotransferase 22 Units/L (7-52); Albumin 4.7 g/dL (3.5-5.7); Albumin/Globulin Ratio 1.8 (1.1-2.2); Alkaline Phosphatase 77 Units/L (34-104); Aspartate Amino Transferase 20 Units/L (13-39); BUN/Creatinine Ratio 16 (6-26); Bilirubin,Direct 0.1 mg/dL (0.0-0.2); Bilirubin,Indirect 0.3 mg/dL (0.0-1.0); Bilirubin,Total 0.4 mg/dL (0.3-1.0); Blood Urea Nitrogen 48 mg/dL (6-20); Calcium 9.6 mg/dL (8.6-10.3); Carbon Dioxide 21 mEq/L (23-29); Chloride 104 mEq/L (98-107); Globulin 2.6 g/dL (2.4-3.5); Glucose 105 mg/dL (70-105); Osmolality,Calculated 299 (280-300); Potassium 4.3 mEq/L (3.5-5.1); Sodium 138 mEq/L (136-145); Total Protein 7.3 g/dL (6.4-8.9); Troponin I < 0.03 ng/mL (< 0.04); eGFR For African Americans 26 (> 60); eGFR For Non-African Americans 22 (> 60)
[2020-02-11] MEDS ORDERED: Aspirin 81 MG TAB.CHEW ONE (19:30)
[2020-02-11] MEDS ORDERED: 0.9 % Sodium Chloride 1,000 ML IVC ONE (20:03)
[2020-02-11 21:45] LABS: Bilirubin,Urine Negative (Negative); Blood,Urine Negative (Negative); Clarity,Urine Clear (Clear); Color,Urine Yellow (Yellow); Glucose,Urine (UA) Normal (Normal); Hyaline Casts,Urine Many per lpf (None Seen); Ketones,Urine Negative (Negative); Leukocyte Esterase,Urine Negative (Negative); Mucus,Urine Few per lpf (None-Few); Nitrite,Urine Negative (Negative); Protein,Urine 30 mg/dL (Neg-Trace); RBC,Urine 0-3 per hpf (0-3); Specific Gravity,Urine 1.019 (1.010-1.025); Squamous Epithelial Cell,Urine Few per hpf (None-Few); WBC,Urine 0-3 per hpf (0-3)
[2020-02-11] MEDS ORDERED: Ondansetron 4 MG/2 ML VIAL IVP PRN (23:49)
[2020-02-11] MEDS ORDERED: Acetaminophen 325 MG TABLET PO PRN (23:49)
[2020-02-11] MEDS ORDERED: Naloxone 0.4 MG/ML INJ IVP PRN (23:49)
[2020-02-12] MEDS: 0.9 % Sodium Chloride 1,000 ML IVC SCH ×2 (00:14→21:41)
[2020-02-12 04:58] LABS: Hematocrit 36.9 % (37.5-50.1); Hemoglobin 12.6 g/dL (12.9-16.9); Mean Corpuscular HGB Conc 34.1 g/dL (31.6-35.5); Mean Corpuscular Hemoglobin 34.1 pg (28.0-33.3); Mean Corpuscular Volume 99.7 fL (83.0-100.0); Mean Platelet Volume 9.7 fL (9.4-12.4); Platelet Count 222 K/mcL (140-400); Red Cell Distribution Width 14.1 % (11.5-14.5)
[2020-02-12 05:17] LABS: BUN/Creatinine Ratio 19 (6-26); Blood Urea Nitrogen 43 mg/dL (6-20); Calcium 9.6 mg/dL (8.6-10.3); Carbon Dioxide 25 mEq/L (23-29); Chloride 108 mEq/L (98-107); Cholesterol 180 mg/dL (< 200); Glucose 92 mg/dL (70-105); HDL Cholesterol 36 mg/dL (40-59); LDL Cholesterol,Calculated 69 mg/dL (< 100); Magnesium 1.9 mg/dL (1.6-2.6); Osmolality,Calculated 302 (280-300); Phosphorous 4.2 mg/dL (2.7-4.5); Potassium 4.3 mEq/L (3.5-5.1); Sodium 141 mEq/L (136-145); Triglycerides 373 mg/dL (< 150); Troponin I < 0.03 ng/mL (< 0.04); eGFR For African Americans 37 (> 60); eGFR For Non-African Americans 30 (> 60)
[2020-02-12] MEDS: *HR* Heparin 5,000 UNIT/ML VIAL SQ SCH ×3 (05:26→21:31)
[2020-02-12 05:35] LABS: Complement C3 147 mg/dL (87-200)
[2020-02-12] MEDS ORDERED: lisinopriL 20 MG TABLET PO SCH (09:00)
[2020-02-12] MEDS: Metoprolol XL (24 HR) Succ 50 MG TAB.ER.24H PO SCH (11:22)
[2020-02-12] MEDS: Gabapentin 400 MG CAPSULE PO SCH ×2 (11:22→21:30)
[2020-02-12] MEDS: Isosorbide MONOnitrate (24 HR) 30 MG TAB.ER.24H PO SCH (11:22)
[2020-02-12] MEDS: NIFEdipine XL (24 HR) 60 MG TAB.ER.24 PO SCH (11:22)
[2020-02-12] MEDS: Aspirin Enteric Coated 81 MG Tablet PO SCH (11:22)
[2020-02-12] MEDS: Folic Acid 1 MG TABLET PO SCH (11:23)
[2020-02-12] MEDS: Ranolazine 500 MG TAB.ER.12H PO SCH (21:30)
[2020-02-12] MEDS ORDERED: Nicotine 14 MG PATCH.TD24 TD SCH (23:00)
[2020-02-13 04:41] LABS: Hematocrit 36.1 % (37.5-50.1); Hemoglobin 12.1 g/dL (12.9-16.9); Mean Corpuscular HGB Conc 33.5 g/dL (31.6-35.5); Mean Corpuscular Hemoglobin 33.2 pg (28.0-33.3); Mean Corpuscular Volume 98.9 fL (83.0-100.0); Platelet Count 220 K/mcL (140-400); Red Blood Count 3.65 M/mcL (4.19-5.50); White Blood Count 8.1 K/mcL (4.3-11.1)
[2020-02-13 04:52] LABS: BUN/Creatinine Ratio 19 (6-26); Blood Urea Nitrogen 27 mg/dL (6-20); Calcium 9.2 mg/dL (8.6-10.3); Carbon Dioxide 24 mEq/L (23-29); Chloride 110 mEq/L (98-107); Glucose 124 mg/dL (70-105); Osmolality,Calculated 303 (280-300); Potassium 4.1 mEq/L (3.5-5.1); Sodium 143 mEq/L (136-145); eGFR For African Americans > 60 (> 60); eGFR For Non-African Americans 53 (> 60)
[2020-02-13] MEDS: *HR* Heparin 5,000 UNIT/ML VIAL SQ SCH (05:16)
[2020-02-13 06:42] VITALS: BP 142/85
[2020-02-13] MEDS: Gabapentin 400 MG CAPSULE PO SCH (07:57)
[2020-02-13] MEDS: Folic Acid 1 MG TABLET PO SCH (07:58)
[2020-02-13] MEDS: Ranolazine 500 MG TAB.ER.12H PO SCH (07:58)
[2020-02-13] MEDS: Aspirin Enteric Coated 81 MG Tablet PO SCH (07:58)
[2020-02-13] MEDS: Isosorbide MONOnitrate (24 HR) 30 MG TAB.ER.24H PO SCH (07:58)
[2020-02-13] MEDS: Metoprolol XL (24 HR) Succ 50 MG TAB.ER.24H PO SCH (07:58)
[2020-02-13] MEDS: NIFEdipine XL (24 HR) 60 MG TAB.ER.24 PO SCH (07:59)
[2020-02-13] MEDS: 0.9 % Sodium Chloride 1,000 ML IVC SCH (08:57)
[2020-02-13] MEDS ORDERED: Pantoprazole 40 MG VIAL IVP SCH (09:00)
== END 2020-02-13 10:41 | disposition home or self-care (01) ==
LOC: EMEROOARM 18:22 → 3BNU 18:22 → SUATTDRO 20:43 → 3BNU 21:56
PROVIDERS: ADMIT Student in an Organized Health Care Education/Training Program; ATTEND Internal Medicine